=== PATIENT | male | born 1975 | race American Indian/Alaskan Native ===

== ENCOUNTER 2021-01-02 13:34 | Emergency (ER) | payer BC ==
[2021-01-02 13:47] VITALS: BP 151/94
[2021-01-02] MEDS ORDERED: ASPIRIN 325 MG TAB PO ONE (13:47)
--- NOTE | 2021-01-02 14:33 | XRay Report ---
CHEST PA AND LATERAL VIEWS INDICATION: cp. COMPARISON: None. FINDINGS: Support devices: None. Heart: Within normal limits. Lungs/Pleura: No acute pulmonary or pleural findings. IMPRESSION: 1. No acute findings. Signer Name: Kenyon Rodriguez MD Signed: 01/02/2021 2:29 PM Workstation Name: [id number]
[2021-01-02 15:00] LABS: Basophils % (Auto) 0.6 % (0.0-1.8); Eosinophils # (Auto) 0.3 K/mm3 (0.0-0.4); Eosinophils % (Auto) 7.2 % (0.0-4.3); Hematocrit 39.8 % (35.5-45.6); Lymphocytes # (Auto) 1.6 K/mm3 (1.2-5.4); Lymphocytes % (Auto) 41.4 % (13.4-35.0); Mean Corpuscular HGB Conc 35 % (32-34); Mean Corpuscular Volume 87 fl (84-94); Monocytes # (Auto) 0.5 K/mm3 (0.0-0.8); Monocytes % (Auto) 11.9 % (0.0-7.3); Platelet Count 176 K/mm3 (140-440); Red Cell Distribution Width 13.7 % (13.2-15.2)
[2021-01-02 15:23] LABS: Alanine Aminotransferase 23 units/L (7-56); Albumin 4.1 g/dL (3.9-5); BUN/Creatinine Ratio 11; Blood Urea Nitrogen 13 mg/dL (9-20); Calcium 8.3 mg/dL (8.4-10.2); Hemolysis Index 28
--- NOTE | 2021-01-02 17:37 | Emergency Department Report ---
ED General Adult HPI - General Chief complaint: Chest Pain Stated complaint: CHEST ARM PAIN Time Seen by Provider: 01/02/21 17:21 Source: patient Mode of arrival: Ambulatory Limitations: No Limitations - History of Present Illness Initial comments: Patient is a 45-year-old male who presents emergency room with complaints of right upper back pain that began a week ago. He states he also has pain in his right shoulder and right wrist. Patient states that he does heavy lifting at his job and frequently does repetitive movements. 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 He denies any fall or injury. The triage note says chest pain, I specifically asked patient if he had chest pain and he stated no. He denies any shortness of breath, cough, fever, nausea, vomiting, diarrhea, extremity swelling, pleuritic pain, hemoptysis. Patient denies any past medical history. No allergies to medications. He is a non-smoker. Severity scale (0 -10): 10 - Related Data Previous Rx's Medication Instructions Recorded Last Taken Type Menthol/Camphor [Neola Henefer 1 applicatio TP BID #18 oint...g. 01/02/21 Unknown Rx Ointment] Naproxen 375 mg PO BID PRN #20 tablet. 01/02/21 Unknown Rx methOCARBAMOL [Robaxin TAB] 500 mg PO BID PRN #14 tab 01/02/21 Unknown Rx Allergies Allergy/AdvReac Type Severity Reaction Status Date / Time No Known Allergies Allergy Unverified 01/02/21 13:40 ED Review of Systems ROS: Stated complaint: CHEST ARM PAIN Other details as noted in HPI Comment: All other systems reviewed and negative ED Past Medical Hx - Past Medical History Previous Medical History?: No - Surgical History Past Surgical History?: Yes Additional Surgical History: hernia repair - Medications Home Medications: Home Medications Medication Instructions Recorded Confirmed Last Taken Type Menthol/Camphor [Neola Henefer 1 applicatio TP BID #18 oint...g. 01/02/21 Unknown Rx Ointment] Naproxen 375 mg PO BID PRN #20 tablet. 01/02/21 Unknown Rx methOCARBAMOL [Robaxin TAB] 500 mg PO BID PRN #14 tab 01/02/21 Unknown Rx ED Physical Exam - General Limitations: No Limitations General appearance: alert, in no apparent distress - Head Head exam: Present: atraumatic, normocephalic - Eye Eye exam: Present: normal appearance - ENT ENT exam: Present: mucous membranes moist - Neck Neck exam: Present: normal inspection, full ROM. Absent: tenderness, meningismus - Respiratory Respiratory exam: Present: normal lung sounds bilaterally. Absent: respiratory distress, wheezes, rales, rhonchi, stridor, chest wall tenderness, accessory muscle use, decreased breath sounds, prolonged expiratory - Cardiovascular Cardiovascular Exam: Present: regular rate, normal rhythm, normal heart sounds. Absent: systolic murmur, diastolic murmur, rubs, gallop - Extremities Exam Extremities exam: Present: other (mild ttp of the right trapezius, no crepitus, no ecchymosis, no deformity, no bony ttp of the RUE, FROM of the RUE, no sulcus sign, clavicles are equal, no clavicular ttp, neurovascularly intact) - Back Exam Back exam: Present: normal inspection, full ROM, paraspinal tenderness (mild right sided thoracic muscular ttp, adjacent to the scapula, no winging of the scapula, no midline C-spine, T-spine or L-spine ttp, no step offs, no deformities ). Absent: vertebral tenderness - Neurological Exam Neurological exam: Present: alert, oriented X3, CN II-XII intact, normal gait. Absent: motor sensory deficit - Psychiatric Psychiatric exam: Present: normal affect, normal mood - Skin Skin exam: Present: warm, dry, intact ED Course Vital Signs 01/02/21 13:46 Temperature 97.9 F Pulse Rate 85 Respiratory 18 Rate Blood Pressure 151/94 [Right] O2 Sat by Pulse 100 Oximetry ED Medical Decision Making - Lab Data Result diagrams: 01/02/21 14:34 01/02/21 14:34 Lab Results 01/02/21 01/02/21 Range/Units 14:34 14:34 WBC 3.9 L (4.5-11.0) K/mm3 RBC 4.60 (3.65-5.03) M/mm3 Hgb 14.0 (11.8-15.2) gm/dl Hct 39.8 (35.5-45.6) % MCV 87 (84-94) fl MCH 30 (28-32) pg MCHC 35 H (32-34) % RDW 13.7 (13.2-15.2) % Plt Count 176 (140-440) K/mm3 Lymph % (Auto) 41.4 H (13.4-35.0) % [place] % (Auto) 11.9 H (0.0-7.3) % Eos % (Auto) 7.2 H (0.0-4.3) % Baso % (Auto) 0.6 (0.0-1.8) % Lymph # (Auto) 1.6 (1.2-5.4) K/mm3 [place] # (Auto) 0.5 (0.0-0.8) K/mm3 Eos # (Auto) 0.3 (0.0-0.4) K/mm3 Baso # (Auto) 0.0 (0.0-0.1) K/mm3 Seg Neutrophils % 38.9 L (40.0-70.0) % Seg Neutrophils # 1.5 L (1.8-7.7) K/mm3 Sodium 136 L (137-145) mmol/L Potassium 4.2 (3.6-5.0) mmol/L Chloride 102.1 (98-107) mmol/L Carbon Dioxide 23 (22-30) mmol/L Anion Gap 15 mmol/L BUN 13 (9-20) mg/dL Creatinine 1.2 (0.8-1.3) mg/dL Estimated GFR > 60 ml/min BUN/Creatinine Ratio 11 % Glucose 99 (75-100) mg/dL Calcium 8.3 L (8.4-10.2) mg/dL Total Bilirubin < 0.20 (0.1-1.2) mg/dL AST 35 (5-40) units/L ALT 23 (7-56) units/L Alkaline Phosphatase 70 (35-129) units/L Troponin T < 0.010 (0.00-0.029) ng/mL Total Protein 7.1 (6.3-8.2) g/dL Albumin 4.1 (3.9-5) g/dL Albumin/Globulin Ratio 1.4 % - EKG Data EKG shows normal: sinus rhythm, axis, intervals, QRS complexes, ST-T waves Rate: normal - Radiology Data Radiology results: report reviewed Ordering Physician: MARI VILLASENOR MD Date of Service: 01/02/21 Procedure(s): XR chest routine 2V Accession Number(s): [id number] cc: ED DOC, Fluoro Time In Minutes: CHEST PA AND LATERAL VIEWS INDICATION: cp. COMPARISON: None. FINDINGS: Support devices: None. Heart: Within normal limits. Lungs/Pleura: No acute pulmonary or pleural findings. IMPRESSION: 1. No acute findings. Signer Name: Kenyon Rodriguez MD Signed: 01/02/2021 2:29 PM Workstation Name: [id number] Transcribed By: CAR Dictated By: Kenyon Rodriguez MD Electronically Authenticated By: Kenyon Rodriguez MD Signed Date/Time: 01/02/211428 DD/ 27 TD/TT: - Medical Decision Making Patient is a 45-year-old male who presents emergency room with complaints of right upper back pain that began a week ago. He states he also has pain in his right shoulder and right wrist. Patient states that he does heavy lifting at his job and frequently does repetitive movements. 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 He denies any fall or injury. The triage note says chest pain, I specifically asked patient if he had chest pain and he stated no. He denies any shortness of breath, cough, fever, nausea, vomiting, diarrhea, extremity swelling, pleuritic pain, hemoptysis. Patient denies any past medical history. No allergies to medications. He is a non-smoker. Vitals are stable. on exam: mild ttp of the right trapezius, no crepitus, no ecchymosis, no deformity, no bony ttp of the RUE, FROM of the RUE, no sulcus sign, clavicles are equal, no clavicular ttp, neurovascularly intact, mild right sided thoracic muscular ttp, adjacent to the scapula, no winging of the scapula, no midline C-spine, T-spine or L-spine ttp, no step offs, no deformities. Orders placed prior to my examination. Labs are stable. EKG is within normal notes. Chest x-ray: 1. No acute findings. Symptoms appear to be most consistent with musculoskeletal pain. Patient given prescription for medications. Discussed the importance of outpatient follow-up. Discussed return precautions. Advised patient Please use medication as prescribed as needed. Do not drive or operate heavy machinery while taking muscle relaxer Robaxin. May use ice pack, heating pad, rest, epsom salt bath. Do not use heat or ice while using Neola balm. Follow-up with a primary care doctor for reexamination. Return to emergency room for any new or worsening symptoms. Critical care attestation.: If time is entered above; I have spent that time in minutes in the direct care of this critically ill patient, excluding procedure time. ED Disposition Clinical Impression: Upper back pain, Right wrist pain Right shoulder pain Qualifiers: Chronicity: acute Qualified Code(s): M25.511 - Pain in right shoulder Disposition: DC-01 TO HOME OR SELFCARE Is pt being admited?: No Does the pt Need Aspirin: No Condition: Stable Instructions: Muscle Pain, Adult Additional Instructions: Please use medication as prescribed as needed. Do not drive or operate heavy machinery while taking muscle relaxer Robaxin. May use ice pack, heating pad, rest, epsom salt bath. Do not use heat or ice while using Neola balm. Follow- up with a primary care doctor for reexamination. Return to emergency room for any new or worsening symptoms. Prescriptions: Naproxen 375 mg PO BID PRN #20 tablet. PRN Reason: pain methOCARBAMOL [Robaxin TAB] 500 mg PO BID PRN #14 tab PRN Reason: muscle spasm/pain Menthol/Camphor [Neola Henefer Ointment] 1 applicatio TP BID #18 oint...g. Referrals: ROSAURA MARINELLI MD [Staff Physician] - 3-5 Days LAVELLE GIVENS MD [Staff Physician] - 3-5 Days [facility] [Provider Group] - 3-5 Days Time of Disposition: 17:37 Print Language: BULGARIAN
--- NOTE | 2021-01-04 13:31 | Electrocardiograph Report ---
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
== END 2021-01-02 17:54 | disposition home or self-care (01) ==
LOC: ED 13:34
DX: M25.511 Pain in right shoulder (principal); M25.531 Pain in right wrist; M54.6 Pain in thoracic spine; Z79.899 Other long term (current) drug therapy; Z98.890 Other specified postprocedural states
CPT/HCPCS: 36415; 71046; 80053; 84484; 85025; 93005